=== PATIENT | female | born 1940 | race Caucasian/White ===

== ENCOUNTER 2019-01-31 10:43 | Emergency (ER) | payer MEDICARE, OTHER ==
[2019-01-31 10:54] VITALS: PULSE 62
[2019-01-31] MEDS ORDERED: Aspirin 81 MG Tab.Chew PO ONE (11:03)
--- NOTE | 2019-01-31 11:03 | EDM.PDOC ---
ED HPI GENERAL MEDICAL PROBLEM - General Chief Complaint: Chest Pain Stated Complaint: CHEST PAINS Time Seen by Provider: 01/31/19 11:03 Source of Information: Reports: Patient, Old Records, RN, RN Notes Reviewed History Limitations: Reports: No Limitations - History of Present Illness INITIAL COMMENTS - FREE TEXT/NARRATIVE: Pt presents to ER from home by POV with c/o increasing lower extremity edema and left sided anterior chest pain. Pt states pain started on Sunday, and has been persistent since the onset. She describes a sharp aching pain that occurs only when she takes a deep breath. Pt states the pain was increasing last night, and interfered with her sleep. Pt reports 81mg aspirin taken last night. Pt denies taking any medicine for the pain this morning. Pt reports a mild cough x2 weeks, mostly in the mornings with light green mucus and then she doesn't cough much or at all throughout the rest of the day. She denies any exertional chest pain or shortness of breath. Denies orthopnea, fever , chills, or hemoptysis. She states Dr. Vega made some increased to her "water pills" recently but her edema has gotten worse despite the medication changes. Left Anterior Chest Pain Score (Numeric/FACES): 2 - Related Data Allergies Allergy/AdvReac Type Severity Reaction Status Date / Time lisinopril Allergy Unknown Cannot Verified 01/31/19 10:59 Remember calamine Allergy Cannot Verified 01/31/19 10:59 Remember clonidine Allergy Cannot Verified 01/31/19 10:59 Remember hydrochlorothiazide Allergy Cannot Verified 01/31/19 10:59 Remember lidocaine Allergy Itching Verified 01/31/19 10:59 amlodipine AdvReac Edema Verified 01/31/19 10:59 Home Meds: Home Meds Aspirin [Ecotrin] 81 mg PO DAILY 10/27/13 [History] Calcium Carbonate/Vitamin D3 [Calcium 500 + Vit D 200 Caplet] 1 tab PO DAILY [History] Fish Oil/[place]-3 Fatty Acids [Fish Oil] 1,000 mg PO BID 10/27/13 [History] Furosemide [Lasix] 40 mg PO DAILY 10/27/13 [History] Dvlyttwg-Tklsuau-Flma 149-Hyal [Glucosamine Chondroitin Complx] 1 tab PO DAILY 10/27/13 [History] Isosorbide Mononitrate [Isosorbide Mononitrate ER] 60 mg PO ACBREAKFASTANDBED [History] Metoprolol Succinate [Toprol XL] 200 mg PO QAM 10/27/13 [History] Simvastatin [Zocor] 20 mg PO DAILY 10/27/13 [History] Paricalcitol 1 mcg PO DAILY 08/27/15 [History] Potassium Chloride 10 meq PO BID 08/27/15 [History] Spironolactone 25 mg PO BID 08/27/15 [History] amLODIPine Besylate [Amlodipine Besylate] 2.5 mg PO BEDTIME 08/27/15 [History] hydrALAZINE [Apresoline] 25 mg PO BID 08/27/15 [History] metOLazone [Metolazone] 10 mg PO QAM 08/27/15 [History] Past Medical History HEENT History: Reports: Impaired Vision Cardiovascular History: Reports: High Cholesterol, Hypertension, Other (See Below) (Peripheral edema) Genitourinary History: Reports: Other (See Below) Other Genitourinary History: Pt states that she sees the private duty nurse, but is not alltogether sure why - Past Surgical History HEENT Surgical History: Reports: Cataract Surgery Social & Family History - Family History Family Medical History: Noncontributory - Living Situation & Occupation Living situation: Reports: , with Spouse Occupation: Retired ED ROS GENERAL - Review of Systems Review Of Systems: ROS reveals no pertinent complaints other than HPI. ED EXAM, GENERAL - Physical Exam Exam: See Below Exam Limited By: No Limitations General Appearance: Alert, WD/WN, No Apparent Distress, Obese Nose: Normal Inspection Throat/Mouth: Normal Inspection, Normal Lips, Normal Voice, No Airway Compromise Head: Atraumatic, Normocephalic Neck: Normal Inspection Respiratory/Chest: No Respiratory Distress, No Accessory Muscle Use, Chest Non- Tender, Decreased Breath Sounds, Crackles, Rales. No: Rhonchi, Wheezing Cardiovascular: Regular Rate, Rhythm GI/Abdominal: Normal Bowel Sounds, Soft, Non-Tender Back Exam: Normal Inspection Extremities: Normal Range of Motion, Non-Tender, Pedal Edema (+3 pitting edema to B/L knees). No: Joint Swelling Neurological: Alert, Oriented, CN II-XII Intact, Normal Cognition, Normal Gait, No Motor/Sensory Deficits Psychiatric: Normal Mood Skin Exam: Warm, Dry, Intact, Normal Color, No Rash EKG INTERPRETATION EKG Date: 01/31/19 Time: 10:54 Rhythm: Other (SR with PVC) Rate (Beats/Min): 61 [place]: LAD-Left [place] Deviation P-Wave: Present QRS: Normal ST-T: Normal QT: Normal AK/PQ Interval: 1st degree AVB Comparison: NA - No Prior EKG Course - Vital Signs Last Recorded V/S: Last Vital Signs Temp 97.8 F 01/31/19 10:53 Pulse 62 01/31/19 10:53 Resp 18 01/31/19 10:53 BP 159/85 H 01/31/19 10:53 Pulse Ox 100 01/31/19 10:53 - Orders/Labs/Meds Orders: Active Orders 24 hr Category Date Time Status EKG 12 Lead [EKG Documentation Completion] [] STAT Care 01/31/19 10:45 Active Peripheral IV Care [] . DIRECTED Care 01/31/19 11:04 Active Furosemide [Lasix] Med 01/31/19 12:57 Once 80 mg IVPUSH NOW ONE Sodium Chloride 0.9% [Saline Flush] Med 01/31/19 11:04 Active 10 ml FLUSH ASDIRECTED PRN Peripheral IV Insertion Adult [OM.PC] Stat Oth 01/31/19 11:04 Ordered Medication Orders Furosemide (Lasix) 80 mg IVPUSH NOW ONE Stop: 01/31/19 12:58 Sodium Chloride (Saline Flush) 10 ml FLUSH ASDIRECTED PRN PRN Reason: Keep Vein Open Last Admin: 01/31/19 11:14 Dose: 10 ml Labs: Laboratory Tests 01/31/19 01/31/19 Range/Units 11:27 11:27 WBC 8.1 (5.0-10.0) 10^3/uL RBC 5.19 (4.2-5.4) 10^6/uL Hgb 15.4 (12.0-16.0) g/dL Hct 46.2 (37.0-47.0) % MCV 89.0 (80-100) fL MCH 29.7 (27.0-34.0) pg MCHC 33.3 (33.0-35.0) g/dL Plt Count 159 (150-450) 10^3/uL Neut % (Auto) 62.0 (42.2-75.2) % Lymph % (Auto) 23.2 (20.5-50.1) % [place] % (Auto) 10.8 H (2-8) % Eos % (Auto) 3.6 H (1.0-3.0) % Baso % (Auto) 0.4 (0.0-1.0) % Sodium 137 (135-145) mmol/L Potassium 4.2 (3.6-5.0) mmol/L Chloride 97 L (101-111) mmol/L Carbon Dioxide 29.0 (21.0-31.0) mmol/L Anion Gap 15.2 BUN 25 H (7-18) mg/dL Creatinine 0.9 (0.6-1.3) mg/dL Est Cr Clr Drug Dosing 38.25 mL/min Estimated GFR (MDRD) > 60 BUN/Creatinine Ratio 27.77 Glucose 190 H (74-105) mg/dL Calcium 9.4 (8.4-10.2) mg/dl Total Bilirubin 0.9 (0.2-1.0) mg/dL AST 20 (10-42) IU/L ALT 17 (10-60) IU/L Alkaline Phosphatase 39 L (42-121) IU/L Troponin I 0.02 (0.00-0.02) ng/ml B-Natriuretic Peptide 191 H (0-100) pg/ml Total Protein 7.1 (6.7-8.2) g/dl Albumin 3.9 (3.2-5.5) g/dl Globulin 3.2 Albumin/Globulin Ratio 1.22 Lipase 51 (22-51) U/L Meds: Medications Generic Name Dose Route Start Last Admin Trade Name Freq PRN Reason Stop Dose Admin Furosemide 80 mg 01/31/19 12:57 Lasix IVPUSH 01/31/19 12:58 NOW ONE Sodium Chloride 10 ml 01/31/19 11:04 01/31/19 11:14 Saline Flush FLUSH 10 ml ASDIRECTED PRN Administration Keep Vein Open Discontinued Medications Generic Name Dose Route Start Last Admin Trade Name Freq PRN Reason Stop Dose Admin Aspirin 324 mg 01/31/19 11:03 01/31/19 11:23 Aspirin PO 01/31/19 11:04 324 mg ONETIME ONE Administration - Radiology Interpretation Free Text/Narrative:: CXR: Mild pulmonary venous congestion per radiologist report. - Re-Assessments/Exams Free Text/Narrative Re-Assessment/Exam: 01/31/19 13:10 Pt ambulated >5mins. with RT monitoring oxygen sats. and does not desaturate with exertion. Departure - Departure Time of Disposition: 13:11 Disposition: Home, Self-Care 01 Condition: Good Clinical Impression: Pleuritic chest pain Edema Qualifiers: Edema type: unspecified Qualified Code(s): R60.9 - Edema, unspecified Instructions: Pleurodynia, Peripheral Edema Forms: ED Department Discharge Additional Instructions: Limit fluid intake to 1500mls per day. Continue current medications exactly as prescribed. Call today to arrange an appointment with Dr. Vega in clinic for February 03. - My Orders Last 24 Hours: My Active Orders 01/31/19 10:45 EKG 12 Lead [EKG Documentation Completion] [RC] STAT 01/31/19 11:04 Peripheral IV Care [RC] . DIRECTED Sodium Chloride 0.9% [Saline Flush] 10 ml FLUSH ASDIRECTED PRN Peripheral IV Insertion Adult [OM.PC] Stat 01/31/19 12:57 Furosemide [Lasix] 80 mg IVPUSH NOW ONE - Assessment/Plan Last 24 Hours: My Active Orders 01/31/19 10:45 EKG 12 Lead [EKG Documentation Completion] [RC] STAT 01/31/19 11:04 Peripheral IV Care [RC] . DIRECTED Sodium Chloride 0.9% [Saline Flush] 10 ml FLUSH ASDIRECTED PRN Peripheral IV Insertion Adult [OM.PC] Stat 01/31/19 12:57 Furosemide [Lasix] 80 mg IVPUSH NOW ONE
[2019-01-31] MEDS ORDERED: Sodium Chloride 0.9% 10 ML Syringe FLUSH PRN (11:04)
--- NOTE | 2019-01-31 11:32 | CR ---
EXAMINATION: Chest 1V Frontal SEX: Female AGE: 78 years CLINICAL HISTORY: 78-year-old morbidly obese female with chest pain. INTERPRETATION: 1. Large cardiac silhouette and generalized pulmonary venous congestion. 2. No alveolar edema or dependent pleural effusion. 3. No lung mass, hilar lymphadenopathy or focal lobar pneumonia. 4. No pneumothorax or free subdiaphragmatic air. CONCLUSION: Cardiomyopathy. Mild pulmonary venous congestion. BNP? EKG?
[2019-01-31 11:54] LABS: ANION GAP 15.2; CHLORIDE,CL 97 mmol/L (101-111); SODIUM,NA 137 mmol/L (135-145)
[2019-01-31] MEDS ORDERED: Furosemide 40 MG/4 ML VIAL IVPUSH ONE (12:57)
[2019-01-31 14:12] VITALS: BP 124/70
== END 2019-01-31 13:50 | disposition home or self-care (01) ==
LOC: DL.ED 10:43
DX: R07.81 Pleurodynia (principal); R60.9 Edema, unspecified; E78.00 Pure hypercholesterolemia, unspecified; I10 Essential (primary) hypertension; E66.9 Obesity, unspecified; Z79.899 Other long term (current) drug therapy; Z88.8 Allergy status to other drugs, medicaments and biological substances; Z79.82 Long term (current) use of aspirin
CPT/HCPCS: 36415; 71045; 80053; 83690; 83880; 84484; 85025; 93005; 96374; 99285; A9270; J1940

== ENCOUNTER 2024-02-01 11:47 | Emergency (ER) | payer MEDICARE, OTHER ==
[2024-02-01] MEDS: Sodium Chloride 0.9% 1,000 ML IV ONE ×2 (11:50→13:00)
[2024-02-01] MEDS ORDERED: Sodium Chloride 0.9% 10 ML Syringe FLUSH PRN (11:54)
[2024-02-01 12:10] LABS: HEMATOCRIT 31.6 % (37.0-47.0); MEAN CORPUSCULAR HEMOGLOBIN 29.4 pg (27.0-34.0); MEAN CORPUSCULAR HGB CONC 34.8 g/dL (33.0-35.0); MEAN CORPUSCULAR VOLUME 84.5 fL (80-100); PLATELET COUNT,PLT 319 10^3/uL (150-450); RED BLOOD CELL COUNT 3.74 10^6/uL (4.2-5.4); WHITE BLOOD CELL COUNT,WBC 27.6 10^3/uL (5.0-10.0)
[2024-02-01 12:12] LABS: LYMPHOCYTES PERCENT AUTO 1.7 % (20.5-50.1); MONOCYTES PERCENT AUTO 0.8 % (2-8); NEUTROPHILS PERCENT AUTO 97.4 % (42.2-75.2)
[2024-02-01 12:13] LABS: BASOPHILS PERCENT AUTO 0.1 % (0.0-1.0)
[2024-02-01 12:33] LABS: ALANINE AMINOTRANSFERASE,ALT 78 U/L (14-59); ALBUMIN 2.1 g/dL (3.4-5.0); ALKALINE PHOSPHATASE 145 U/L (46-116); ANION GAP 26.7 mEq/L (7-13); ASPARTATE AMNIOTRANSFERASE,AST 72 U/L (15-37); BILIRUBIN TOTAL 1.4 mg/dL (0.2-1.0); BLOOD UREA NITROGEN,BUN 94 mg/dL (7-18); BUN/CREATININE RATIO 38.4 (No establ ref range); CALCIUM 10.6 mg/dL (8.5-10.1); CARBON DIOXIDE,CO2 13 mmol/L (21-32); CHLORIDE,CL 100 mmol/L (98-107); CREATININE 2.45 mg/dL (0.55-1.02); EST CRCL DRUG DOSING (CG) 17.24 mL/min; GLUCOSE RANDOM 274 mg/dL (70-99); INR 1.1 (0.9-1.2); MAGNESIUM 1.9 mg/dL (1.8-2.4); PROTEIN TOTAL,TP 7.3 g/dL (6.4-8.2); PROTHROMBIN TIME 11.8 SEC (9.0-12.0); SODIUM,NA 133 mmol/L (136-145)
[2024-02-01 12:37] LABS: ESTIMATED GFR 19 mL/min (>=60)
[2024-02-01 12:39] LABS: LACTIC ACID 8.1 mmol/L (0.4-2.0); POTASSIUM,K 6.7 mmol/L (3.5-5.1)
[2024-02-01] MEDS ORDERED: Glucagon,Human Recombinant 1 MG Vial IM PRN (12:39)
[2024-02-01] MEDS ORDERED: 50% Dextrose in Water 50 ML Syringe IVPUSH PRN (12:39)
[2024-02-01 12:43] LABS: C-REACTIVE PROTEIN > 25.00 ng/dL (<=0.50)
[2024-02-01] MEDS: Piperacillin/Tazobactam 4.5 GM in Sodium Chloride 0.9% 100 ML IV ONE (12:43)
[2024-02-01 12:46] LABS: B-TYPE NATRIURETIC PEPTIDE,BNP 428 pg/ml (0-100)
[2024-02-01] MEDS: Norepinephrine Bit/D5W Premix 250 ML IV SCH (12:49)
[2024-02-01 12:54] LABS: PTT,PARTIAL THROMBOPLSTIN TIME 30.3 SEC (22.0-34.0)
[2024-02-01 12:55] LABS: BAND PERCENT MAN 4 %; LYMPHOCYTES PERCENT MAN 2 % (20-50); MONOCYTES PERCENT MAN 1 % (2-8); NRBC MANUAL 1 /100WBC; SEG NEUTROPHILS PERCENT MAN 93 % (42-75)
[2024-02-01] MEDS: Sodium Zirconium Cyclosilicate 5 GM Packet PO ONE (12:57)
[2024-02-01] MEDS: Albuterol 0.083% 2.5 MG/3 ML Neb Soln NEB ONE (13:00)
[2024-02-01] MEDS: Dexamethasone 4 MG/ML SDV IVPUSH ONE (13:52)
[2024-02-01] MEDS: Insulin Regular, Human 100 Units/ML 3 ML Vial IV ONE (13:53)
[2024-02-01] MEDS: Insulin Regular, Human 100 Units/ML 10 ML Vial ONE (13:58)
[2024-02-01] MEDS: Heparin Sodium 5,000 Units/ML Vial IVPUSH ONE (14:00)
[2024-02-01] MEDS: Heparin Sodium/0.45% NaCl 25,000 UNITS/500 ML BAG IV SCH (14:03)
[2024-02-01 14:23] VITALS: BP 105/48; PULSE 100
[2024-02-01] MEDS: 50% Dextrose in Water 50 ML Syringe IVPUSH ONE (14:28)
== END 2024-02-01 15:10 ==
LOC: DL.ED 11:47
DX: A41.9 Sepsis, unspecified organism (principal); E87.5 Hyperkalemia; R06.03 Acute respiratory distress; R79.89 Other specified abnormal findings of blood chemistry; E87.20 Acidosis, unspecified; E11.65 Type 2 diabetes mellitus with hyperglycemia; E78.00 Pure hypercholesterolemia, unspecified; I10 Essential (primary) hypertension; Z79.82 Long term (current) use of aspirin; Z79.899 Other long term (current) drug therapy; Z88.8 Allergy status to other drugs, medicaments and biological substances; Z91.048 Other nonmedicinal substance allergy status; Z88.6 Allergy status to analgesic agent; Z88.4 Allergy status to anesthetic agent
CPT/HCPCS: 36415; 71045; 73502; 80053; 82947; 83605; 83735; 83880; 84132; 84145; 84484; 85025; 85379; 85610; 85730; 86140; 87040; 87804; 93005; 96361; 96365; 96367; 96368; 96375; 99285; A9270; J1100; J1644; J2543; J3490; J7030; U0002; J7613-GY